=== PATIENT | male | born 1990 | race Caucasian/White ===

== ENCOUNTER 2017-03-04 15:06 | Emergency (ER) | payer OTHER ==
[~2017-03-04] VITALS: Ht 180.3 cm; Wt 111.1 kg
[2017-03-04] MEDS ORDERED: LIDOCAINE 1% VIAL ONE ×2 (15:30→16:43)
--- NOTE | 2017-03-04 16:08 | ER.PDOC ---
General Chief Complaint: Skin Rash/Abscess Stated Complaint: ABSCESS ON RIGHT ARM Time seen by MD: 16:07 Source: patient Exam Limitations: no limitations History of Present Illness Initial Comments Abscess right forearm for 1 week Severity: moderate Quality: painful Past Medical History Medical History: no pertinent history Surgical History: no surgical history Social History Smoking: non-smoker Alcohol Use: heavy Drug Use: none Constitutional: no symptoms reported Respiratory: no symptoms reported Cardiovascular: no symptoms reported Gastrointestinal: no symptoms reported Skin: see HPI All Other Systems: Reviewed and Negative Physical Exam General Appearance: alert, no distress Skin: abscess, tender indurated area, with erythema Location: other (right forearm) Character: erythematous With: warmth, tenderness, swelling, inflammation Neck: trachea midline, no swelling Respiratory: no resp. distress, breath sounds nml CVS: reg. rate & rhythm, heart sounds nml, tachycardia Abdomen: non-tender, no organomegaly NEURO/PSYCH: oriented x 3, CN's nml as tested, motor nml, sensation nml, mood/ affect nml Incision and Drainage Incision and Drainage : Site: Right forearm Blade Size: 11 I & D Procedure: betadine prep, gauze wick placed, probe/break up loculation Progress Progress Patient refused admission, signed and left AMA. He understands that his infection could deteriorate resulting into septic shock and . Will Give hip a prescription of Bactrim. He is told to return tomorrow for dressing change. Departure Time of Disposition: 17:01 Disposition: 07 AGAINST MEDICAL ADVICE Impression: Primary Impression: Abscess Additional Impression: Cellulitis Qualified Codes: L03.113 - Cellulitis of right upper limb Condition: Against Medical Advice Referrals: PCP,UNKNOWN (PCP) PRIMARY CARE PROVIDER Duration or Time Spent with Pa: 40 mins EVERETTE RAGSDALE MD Mar 04, 2017 16:08
[2017-03-04 16:29] LABS: BASOPHIL % 0.3 % (0.0-0.2); EOSINOPHIL # 0.1 10^3/uL (0.0-0.2); EOSINOPHIL % 0.9 % (0.0-5.0); HEMOGLOBIN 15.3 g/dL (13.9-16.3); LYMPHOCYTES # 1.7 10^3/uL (1.0-4.8); LYMPHOCYTES % 11.4 % (24.0-44.0); MEAN CELL HGB 30.1 pg (26-34); MEAN CORP VOLUME 88.6 fL (78-100); MEAN PLATELET VOLUME 9.6 fL (7.8-11.0); MONOCYTES % 12.8 % (5.0-12.0); NEUTROPHIL # 11.3 10^3/uL (1.8-7.7); RED CELL DISTRIBUTION WIDTH 12.7 % (11.5-14.5); WHITE BLOOD CELL 15.2 10^3/uL (4.5-11.0)
[2017-03-04 16:46] LABS: CALCIUM 9.5 mg/dL (8.4-10.5); CARBON DIOXIDE 24.5 mmol/L (20.0-32)
[2017-03-04] MEDS ORDERED: CLEOCIN IM STA (17:02)
[2017-03-04] MEDS ORDERED: CLEOCIN ONE (17:07)
[2017-03-04 17:14] VITALS: BP 147/92
== END 2017-03-04 17:15 | disposition left against medical advice (07) ==
LOC: ER 15:06
DX: L03.113 Cellulitis of right upper limb (principal)
CPT/HCPCS: 10060; 36415; 80053; 85025; 87040 ×2; 87070; 87077; 87186; 96372; 99284; J2001 ×2; J3490

== ENCOUNTER 2017-03-05 11:13 | Emergency (ER) | payer OTHER ==
[~2017-03-05] VITALS: Ht 180.3 cm; Wt 111.1 kg
--- NOTE | 2017-03-05 13:17 | ER.PDOC ---
General Chief Complaint: Wound Recheck/Suture Removal Stated Complaint: WOUND CHECK Time seen by MD: 12:21 Source: patient Exam Limitations: no limitations History of Present Illness Initial Comments Pt had I&D done Rt forearm abscess,presents for change of packing. Timing/Duration: 24 hours Severity: moderate Location: RUE Quality: painful Identified Cause: no Allergies: Coded Allergies: No Known Allergies (Unverified , 03/04/17) Past Medical History Medical History: no pertinent history Surgical History: no surgical history Social History Smoking: non-smoker Alcohol Use: occassionally Drug Use: none Constitutional: no symptoms reported EENTM: no symptoms reported Respiratory: no symptoms reported Cardiovascular: no symptoms reported Gastrointestinal: no symptoms reported Genitourinary: no symptoms reported Musculoskeletal: no symptoms reported Skin: no symptoms reported Psychiatric/Neurological: no symptoms reported Endocrine: no symptoms reported Hematologic/Lymphatic: no symptoms reported Physical Exam General Appearance: alert, no distress Skin: warm/dry, nml color Extremities: non-tender, nml ROM, no edema, other (1.5cm wound Rt forearm with surrounding erythema with tenderness.) EENT: eyes nml inspection, lips/gums nml, pharynx nml Neck: trachea midline, no swelling Respiratory: no resp. distress, breath sounds nml CVS: reg. rate & rhythm, heart sounds nml Abdomen: non-tender, no organomegaly NEURO/PSYCH: oriented x 3, CN's nml as tested, motor nml Progress Progress Ribbon pack dressing changed. Pt to continue with Bactrim-DS 1 bid x 10d. f/u in the ER in 48 hours for change of dressing. Departure Time of Disposition: 13:15 Disposition: 01 HOME, SELF-CARE Impression: Primary Impression: Abscess Condition: Stable Referrals: PCP,UNKNOWN (PCP) PRIMARY CARE PROVIDER Duration or Time Spent with Pa: 30mins DUKE LONDON MD Mar 05, 2017 13:17
[2017-03-05 13:34] VITALS: BP 141/76
== END 2017-03-05 13:28 | disposition home or self-care (01) ==
LOC: ER 11:13
DX: Z48.00 Encounter for change or removal of nonsurgical wound dressing (principal)
CPT/HCPCS: 99283